=== PATIENT | male | born 1975 | race African-American/Black ===

== ENCOUNTER 2019-09-04 23:20 | Inpatient (IN) | payer OTHER ==
[2019-09-05] MEDS ORDERED: chlordiazePOXIDE HCL 25 MG CAPSULE PO PRN (00:08)
[2019-09-05] MEDS ORDERED: guaiFENesin 200 MG/10 ML 10 ML UNIT-DOSE CUPS PO PRN (00:08)
[2019-09-05] MEDS ORDERED: ACETAMINOPHEN 325 MG TABLET (FP) PO PRN (00:08)
[2019-09-05] MEDS ORDERED: MAG HYDROX/AL HYDROX/SIMETH 30 ML UNIT-DOSE CUP PO PRN (00:08)
[2019-09-05] MEDS ORDERED: DICYCLOMINE HCL 10 MG CAPSULE PO PRN (00:08)
[2019-09-05] MEDS ORDERED: METHOCARBAMOL 500 MG TABLET PO PRN (00:08)
[2019-09-05] MEDS ORDERED: MAGNESIUM HYDROX 2400MG/30ML ORAL SUSPENSION 30 ML CUP PO PRN (00:08)
[2019-09-05] MEDS ORDERED: cloNIDine HCL 0.1 MG TABLET PO PRN (00:08)
[2019-09-05] MEDS ORDERED: P-EPHED 60MG/TRIPROLIDI 2.5MG TABLET PO PRN (00:08)
[2019-09-05] MEDS ORDERED: MENTHOL/PHENOL 1 EACH UD MM PRN (00:08)
[2019-09-05] MEDS ORDERED: ONDANSETRON *ODT* 4 MG TABLET SL ONE (00:08)
[2019-09-05] MEDS ORDERED: hydrOXYzine PAMOATE 25 MG CAPSULE (FP) PO PRN (00:08)
[2019-09-05] MEDS ORDERED: NICOTINE POLACRILEX 4 MG GUM BUC PRN (00:08)
[2019-09-05] MEDS ORDERED: NALOXONE HCL 0.4 MG/ML VIAL IM PRN (00:08)
[2019-09-05] MEDS ORDERED: MAGNESIUM CITRATE 300 ML BOTTLE PO PRN (00:08)
[2019-09-05] MEDS ORDERED: IBUPROFEN 400 MG TABLET (FP) PO PRN (00:08)
[2019-09-05] MEDS ORDERED: METHADONE HCL 10 MG TABLET (FOR DETOX USE ONLY) PO ONE ×2 (00:08→10:00)
[2019-09-05] MEDS ORDERED: BISMUTH SUBSALICYLATE 524 MG/30 ML UD PO PRN (00:08)
[2019-09-05] MEDS: chlordiazePOXIDE HCL 25 MG CAPSULE PO SCH ×4 (05:51→22:03)
[2019-09-05 09:40] LABS: HEMATOCRIT 34.1 % (35.4-49); HEMOGLOBIN 11.3 GM/dL (11.7-16.9); MCHC 33.1 g/dl (32.0-35.9); MEAN CELL VOLUME 96.9 fl (80-96); MEAN PLT VOLUME 8.1 fl (7.5-11.1); PLATELET COUNT 230 K/MM3 (134-434); RBC 3.52 M/mm3 (4.00-5.60)
[2019-09-05 09:55] LABS: ALBUMIN 3.2 g/dl (3.4-5.0); BILIRUBIN,TOTAL 0.9 mg/dL (0.2-1); BLOOD UREA NITROGEN 15.7 mg/dL (7-18); CALCIUM 8.5 mg/dL (8.5-10.1); CREATININE 1.2 mg/dL (0.55-1.3); TOT PROT 6.4 g/dl (6.4-8.2)
[2019-09-05] MEDS ORDERED: DICYCLOMINE HCL 10 MG CAPSULE PO ONE (10:00)
[2019-09-05] MEDS: FAMOTIDINE 20 MG TABLET PO SCH ×2 (10:27→22:03)
[2019-09-05] MEDS: PRENATAL VITAMINS W/ FOLIC ACID TABLET (FP) PO SCH (10:32)
[2019-09-05] MEDS: NICOTINE 21 MG/24 HOURS TOPICAL PATCH TD SCH (10:59)
[2019-09-05] MEDS ORDERED: PENICILLIN G BENZATHINE 2,400,000 UNIT/4 ML PFS IM ONE (14:00)
[2019-09-05 16:56] LABS: URINE APPEARANCE CLEAR; URINE BILIRUBIN NEGATIVE (NEGATIVE); URINE COLOR YELLOW; URINE GLUCOSE (UA) NEGATIVE (NEGATIVE); URINE KETONE NEGATIVE (NEGATIVE); URINE LEUK ESTERASE NEGATIVE (NEGATIVE); URINE NITRITE NEGATIVE (NEGATIVE); URINE PROTEIN NEGATIVE (NEGATIVE)
[2019-09-05] MEDS: QUEtiapine FUMARATE 200 MG TABLET PO SCH (22:03)
[2019-09-05] MEDS: THIAMINE HCL 100 MG TABLET (FP) PO SCH (22:03)
[2019-09-05] MEDS: MELATONIN 5 MG TABLETS PO SCH (22:08)
[2019-09-06] MEDS: chlordiazePOXIDE HCL 25 MG CAPSULE PO SCH ×4 (06:42→22:22)
[2019-09-06] MEDS ORDERED: METHADONE HCL 10 MG TABLET (FOR DETOX USE ONLY) ONE (09:01)
[2019-09-06] MEDS ORDERED: METHADONE HCL 5 MG TABLET (FOR DETOX USE ONLY) ONE (09:02)
[2019-09-06] MEDS ORDERED: METHADONE (DETOX) 20 MG, METHADONE (DETOX) 5 MG PO ONE (10:00)
[2019-09-06] MEDS: PRENATAL VITAMINS W/ FOLIC ACID TABLET (FP) PO SCH (10:30)
[2019-09-06] MEDS: NICOTINE 21 MG/24 HOURS TOPICAL PATCH TD SCH (10:30)
[2019-09-06] MEDS: ACETAMINOPHEN 325 MG TABLET (FP) PO PRN (10:30)
[2019-09-06] MEDS: FLUoxetine HCL 20 MG CAPSULE PO SCH (10:30)
[2019-09-06] MEDS: FAMOTIDINE 20 MG TABLET PO SCH ×2 (10:30→22:22)
[2019-09-06] MEDS ORDERED: hydrOXYzine PAMOATE 50 MG CAPSULE (FP) PO PRN (11:00)
[2019-09-06 11:47] LABS: HIV INTERPRETATION NEGATIVE (NEGATIVE)
[2019-09-06] MEDS: THIAMINE HCL 100 MG TABLET (FP) PO SCH (22:22)
[2019-09-06] MEDS: QUEtiapine FUMARATE 200 MG TABLET PO SCH (22:22)
[2019-09-06] MEDS: MELATONIN 5 MG TABLETS PO SCH (22:22)
[2019-09-07] MEDS ORDERED: chlordiazePOXIDE HCL 10 MG CAPSULE PO PRN
[2019-09-07] MEDS: chlordiazePOXIDE HCL 10 MG CAPSULE PO SCH ×2 (05:51→10:10)
[2019-09-07] MEDS ORDERED: METHADONE HCL 10 MG TABLET (FOR DETOX USE ONLY) PO ONE (10:00)
[2019-09-07] MEDS: FAMOTIDINE 20 MG TABLET PO SCH (10:10)
[2019-09-07] MEDS: FLUoxetine HCL 20 MG CAPSULE PO SCH (10:10)
[2019-09-07] MEDS: NICOTINE 21 MG/24 HOURS TOPICAL PATCH TD SCH (10:11)
[2019-09-07] MEDS: PRENATAL VITAMINS W/ FOLIC ACID TABLET (FP) PO SCH (10:11)
[2019-09-07] MEDS: ACETAMINOPHEN 325 MG TABLET (FP) PO PRN (10:14)
[2019-09-07 13:49] VITALS: BP 135/67; PULSE 54; TEMP 98.4
[2019-09-08] MEDS ORDERED: chlordiazePOXIDE HCL 10 MG CAPSULE PO SCH (05:00)
[2019-09-08] MEDS ORDERED: METHADONE (DETOX) 10 MG, METHADONE (DETOX) 5 MG PO ONE (10:00)
[2019-09-09] MEDS ORDERED: chlordiazePOXIDE HCL 10 MG CAPSULE PO ONE (05:00)
[2019-09-09] MEDS ORDERED: METHADONE HCL 10 MG TABLET (FOR DETOX USE ONLY) PO ONE (10:00)
[2019-09-10] MEDS ORDERED: METHADONE HCL 5 MG TABLET (FOR DETOX USE ONLY) PO ONE (06:00)
== END 2019-09-07 16:38 | disposition left against medical advice (07) | DRG 770 ==
LOC: YASAS 23:20 → Y3N 23:55
PROVIDERS: ADMIT Allergy & Immunology; ATTEND Allergy & Immunology
PROC: HZ2ZZZZ Detoxification Services for Substance Abuse Treatment (ICD-10-PCS; principal; 2019-09-04)
DX: F10.230 Alcohol dependence with withdrawal, uncomplicated (principal); F11.23 Opioid dependence with withdrawal; F14.20 Cocaine dependence, uncomplicated; F12.20 Cannabis dependence, uncomplicated; F17.210 Nicotine dependence, cigarettes, uncomplicated; F19.24 Other psychoactive substance dependence with psychoactive substance-induced mood disorder; F41.9 Anxiety disorder, unspecified; F32.9 Major depressive disorder, single episode, unspecified; G47.00 Insomnia, unspecified; R63.8 Other symptoms and signs concerning food and fluid intake; R45.89 Other symptoms and signs involving emotional state; Z86.19 Personal history of other infectious and parasitic diseases; Z56.0 Unemployment, unspecified; Z59.0 Homelessness; Z91.19 Patient's noncompliance with other medical treatment and regimen
CPT/HCPCS: 36415; 80053; 81003; 85027; 86593; 86780; 86803; 87389; 93005; 93010; Q0162; U0003